=== PATIENT | female | born 1945 | race Hispanic/Latino ===

== ENCOUNTER 2021-06-26 12:08 | Emergency (ER) | payer OTHER ==
[~2021-06-26] VITALS: Ht 172.7 cm; Wt 81.6 kg
[~2021-06-26 12:08] MED LIST: ASPIRIN325 MG PO; CALTRATE 600600 MG PO; D3 PO; ESIDRIX25 MG PO; LEVOTHYROXINE100 MCG PO; MELOXICAM7.5 MG PO; METFORMIN HCL500 MG PO; NEXIUM40 MG PO; NIFEDIPINE ER60 M1 PO; POTASSIUM CHLO20 ME1 PO; ULTRAM 50MG50 MG PO; [UNRECOGNIZED DRUG - OTHER] PO
== END 2021-06-26 14:00 | disposition home or self-care (01) ==
LOC: ER 13:55
DX: U07.1 COVID-19 (principal); R06.02 Shortness of breath; E11.9 Type 2 diabetes mellitus without complications; Z79.84 Long term (current) use of oral hypoglycemic drugs
CPT/HCPCS: 99282

== ENCOUNTER 2024-08-31 20:30 | Emergency (ER) | payer OTHER ==
[~2024-08-31] VITALS: Ht 172.7 cm; Wt 81.6 kg
[2024-08-31 21:22] LABS: BASOPHILS # (AUTO) 0.1 (0.0-0.1); BASOPHILS % 0.4 % (0.0-1.0); EOSINOPHILS # (AUTO) 0.1 (0.0-0.4); EOSINOPHILS % 0.7 % (0.0-6.0); HEMATOCRIT 40.9 % (34.2-44.1); HEMOGLOBIN 14.5 g/dL (12.0-16.0); LYMPHOCYTES # (AUTO) 3.1 (1.0-3.2); LYMPHOCYTES % 27.1 % (18.0-39.1); MEAN CORPUSCULAR HEMOGLOBIN 29.9 pg (28-32); MEAN CORPUSCULAR HGB CONC 35.5 g/dL (31-35); MEAN CORPUSCULAR VOLUME 84.3 fL (81-99); MONOCYTES # (AUTO) 0.8 (0.2-0.8); MONOCYTES % 6.5 % (4.4-11.3); NEUTROPHILS # (AUTO) 7.5 (2.1-6.9); NEUTROPHILS % 65.1 % (38.7-80.0); PLATELET COUNT 343 x10e3/uL (140-360); RED BLOOD COUNT 4.85 x10e6/uL (3.6-5.1); RED CELL DISTRIBUTION WIDTH 12.6 % (11.7-14.4); WHITE BLOOD COUNT 11.56 x10e3/uL (4.8-10.8)
[2024-08-31 21:24] LABS: CLARITY,URINE CLEAR (CLEAR); COLOR,URINE STRAW (YELLOW); LEUKOCYTE ESTERASE ,URINE TRACE (NEGATIVE); PH,URINE 7 (5 - 7)
[2024-08-31 21:25] LABS: BILIRUBIN,URINE NEGATIVE (NEGATIVE); GLUCOSE, URINE NEGATIVE (NEGATIVE); KETONES,URINE NEGATIVE (NEGATIVE); NITRITE,URINE NEGATIVE (NEGATIVE); PROTEIN,URINE DIPSTICK NEGATIVE (NEGATIVE); URINE UROBILINOGEN 0.2 mg/dL (0.2 - 1)
[2024-08-31 21:31] LABS: BACTERIA,URINE FEW /HPF; EPITHELIAL CELLS,URINE MODERATE /LPF; RBC,URINE 0-5 /HPF (0-5); WBC,URINE (MAN) 0-5 /HPF (0-5)
[2024-08-31] MEDS: KETOROLAC TROMETHAMINE 30 MG/ML VIAL IV STA (21:40)
[2024-08-31 21:42] LABS: ALBUMIN/GLOBULIN RATIO 1.1 (0.8-2.0); ANION GAP 19.8 mmol/L (8-16); BILIRUBIN,TOTAL 1.4 mg/dL (0.2-1.2); CALCIUM 9.8 mg/dL (8.4-10.2); CREATININE, SERUM 0.81 mg/dL (0.57-1.11); TOTAL PROTEIN 7.7 g/dL (6.5-8.1)
[2024-08-31 21:44] LABS: POTASSIUM 2.8 mmol/L (3.5-5.1)
[2024-08-31] MEDS ORDERED: IOPAMIDOL 370 MG/ML 100 ML INFUS..BTL INJ ONE (21:53)
[2024-08-31] MEDS: POTASSIUM CHLORIDE 20 MEQ TAB CR PO STA (22:58)
[2024-08-31] MEDS: Morphine 4mg INJECTION 4 MG/ML INJ IV STA (23:17)
[2024-09-01 00:02] VITALS: PULSE 72; RESP 19; TEMP 98
[2024-09-01] MEDS: TRAMADOL HCL 50 MG TAB PO STA (00:21)
[2024-09-01 00:47] VITALS: BP 137/79; PULSE 60; RESP 17; TEMP 98; O2SAT 98
[2024-09-01] MEDS ORDERED: ULTRAM 50MG50 MG PO (00:51)
[2024-09-02] MEDS ORDERED: MEDROL4 M2 PO (14:47)
== END 2024-09-01 01:08 | disposition home or self-care (01) ==
LOC: ER 20:35
DX: M25.552 Pain in left hip (principal); M79.605 Pain in left leg; R10.30 Lower abdominal pain, unspecified; E11.65 Type 2 diabetes mellitus with hyperglycemia; K21.9 Gastro-esophageal reflux disease without esophagitis; G89.29 Other chronic pain
CPT/HCPCS: 36415; 70450; 74177; 80053; 81001; 83690; 85025; 99284; J1885; J2270; Q9967

== ENCOUNTER 2024-09-02 13:24 | Emergency (ER) | payer OTHER ==
[~2024-09-02] VITALS: Ht 157.5 cm; Wt 81.6 kg
[2024-09-02 13:50] VITALS: PULSE 90; RESP 18; TEMP 98.2
[2024-09-02] MEDS ORDERED: MEDROL4 M2 PO (14:47)
[2024-09-02] MEDS: DEXAMETHASONE SOD PHOS 10 MG/1 ML VIAL IM ONE (14:57)
[2024-09-02] MEDS: KETOROLAC TROMETHAMINE 60 MG/2 ML VIAL IM ONE (14:57)
[2024-09-02] MEDS: ONDANSETRON HCL INJ 2MG/ML 2ML 2 MG/ML VIAL IV STA (15:03)
[2024-09-02] MEDS: KETOROLAC TROMETHAMINE 30 MG/ML VIAL IV STA (15:06)
[2024-09-02] MEDS: DEXAMETHASONE SOD PHOS 10 MG/1 ML VIAL IV ONE (15:06)
[2024-09-02 15:43] VITALS: BP 138/84; PULSE 84; RESP 18; TEMP 98.2; O2SAT 99
== END 2024-09-02 15:40 | disposition home or self-care (01) ==
LOC: ER 13:37
DX: M54.50 Low back pain, unspecified (principal); G89.29 Other chronic pain; E11.40 Type 2 diabetes mellitus with diabetic neuropathy, unspecified; I10 Essential (primary) hypertension; K21.9 Gastro-esophageal reflux disease without esophagitis
CPT/HCPCS: 99283; J1100; J1885; J2405

== ENCOUNTER → 2025-01-13 | Day surgery (SDC) | payer OTHER ==
[2025-01-12 08:55] LABS: BASOPHILS # (AUTO) 0.1 (0.0-0.1); BASOPHILS % 0.7 % (0.0-1.0); EOSINOPHILS # (AUTO) 0.4 (0.0-0.4); EOSINOPHILS % 5.5 % (0.0-6.0); HEMATOCRIT 39.7 % (34.2-44.1); HEMOGLOBIN 13.4 g/dL (12.0-16.0); LYMPHOCYTES # (AUTO) 1.9 (1.0-3.2); LYMPHOCYTES % 28.5 % (18.0-39.1); MEAN CORPUSCULAR HEMOGLOBIN 29.8 pg (28-32); MEAN CORPUSCULAR HGB CONC 33.8 g/dL (31-35); MEAN CORPUSCULAR VOLUME 88.2 fL (81-99); MONOCYTES # (AUTO) 0.5 (0.2-0.8); MONOCYTES % 8.1 % (4.4-11.3); NEUTROPHILS # (AUTO) 3.8 (2.1-6.9); NEUTROPHILS % 57.1 % (38.7-80.0); PLATELET COUNT 257 x10e3/uL (140-360); RED CELL DISTRIBUTION WIDTH 13.4 % (11.7-14.4)
[~2025-01-13] MED LIST changes: +ACETAMINOPHEN 1000 MG/100 ML IV PRN; +ASPIRIN 325 MG TAB PO SCH; +ASPIRIN81 MG PO; +ATORVASTATIN CA20 MG PO; +CELEBREX200 MG PO; +CELECOXIB 100 MG CAP PO SCH; +CYMBALTA20 MG PO; +DIPHENHYDRAMINE HCL INJ 50 MG/ML VIAL IV PRN; +DOCUSATE SODIUM 100 MG CAP PO PRN; +GLIMEPIRIDE2 MG PO; +GLYCOPYRROLATE INJ 0.2 MG/ML VIAL ONE; +HYDROCODONE/APAP 5MG-325MG TAB PO PRN; +LIDOCAINE HCL 2% LOCAL INJ 5 ML SDV VIAL INJ ONE; +LYRICA100 MG PO; +LYRICA150 MG PO; +MEDROL4 M2 PO; +MIDAZOLAM HCL 2 MG/2 ML VIAL ONE; +OMEPRAZOLE40 MG PO; +ONDANSETRON HCL INJ 2MG/ML 2ML 2 MG/ML VIAL IV PRN; +ONDANSETRON HCL INJ 2MG/ML 2ML 2 MG/ML VIAL ONE; +PROPOFOL IV EMULSION 10 MG/ML 20 ML VIAL ONE; +ROCURONIUM BROMIDE 1 ML IV ONE; +ROPIVACAINE/EPI/CLONIDINE/KET 50 ML SYRINGE INJ ONE; +SEVOFLURANE INHAL SOLN 250 ML PEN BTL ONE; +SODIUM CHLORIDE 0.9% 1000ML 1,000 ML IV SCH; +SODIUM CHLORIDE 0.9% INJ 10 ML VIAL ONE; +TRANEXAMIC ACID 1,000 MG/10 ML ML ONE
[2025-01-13] MEDS: LACTATED RINGER'S 1,000 ML ONE (09:10)
[2025-01-13] MEDS: CELECOXIB 200 MG CAP ONE (09:11)
[2025-01-13] MEDS: CEFAZOLIN SODIUM 2 GM ONE (09:11)
[2025-01-13] MEDS: DEXAMETHASONE SOD PHOS 10 MG/1 ML VIAL ONE (09:12)
[2025-01-13 12:41] VITALS: TEMP 97.6
[2025-01-13] MEDS: FENTANYL CITRATE/PF 100MCG/2 ML INJ ONE (12:58)
[2025-01-13] MEDS: HYDROCODONE/APAP 7.5MG-325MG 1 EA TAB PO PRN (13:35)
[2025-01-13 15:30] VITALS: BP 113/68; PULSE 83; RESP 16; O2SAT 94
== END | disposition home health service (06) ==
LOC: OR 08:25
PROVIDERS: ATTEND Specialist
DX: M16.12 Unilateral primary osteoarthritis, left hip (principal); M85.652 Other cyst of bone, left thigh; E11.9 Type 2 diabetes mellitus without complications; I10 Essential (primary) hypertension; E78.00 Pure hypercholesterolemia, unspecified; E03.9 Hypothyroidism, unspecified; K21.9 Gastro-esophageal reflux disease without esophagitis; F41.9 Anxiety disorder, unspecified; Z88.8 Allergy status to other drugs, medicaments and biological substances; Z01.812 Encounter for preprocedural laboratory examination; Z79.84 Long term (current) use of oral hypoglycemic drugs; Z79.82 Long term (current) use of aspirin; Z79.899 Other long term (current) drug therapy
CPT/HCPCS: 27130; 36415 ×2; 72170; 82948; 85025; 86850; 86900; 97116; 97161; 97530; C1713 ×2; C1776 ×3; J1100; J2003; J2405; J2704; J3010; J7121; J2250

== ENCOUNTER → 2025-04-21 | Day surgery (SDC) | payer OTHER ==
[2025-04-20 13:41] LABS: BASOPHILS % 0.5 % (0.0-1.0); EOSINOPHILS # (AUTO) 0.2 (0.0-0.4); EOSINOPHILS % 2.5 % (0.0-6.0); HEMATOCRIT 41.3 % (34.2-44.1); HEMOGLOBIN 13.9 g/dL (12.0-16.0); LYMPHOCYTES # (AUTO) 2.1 (1.0-3.2); LYMPHOCYTES % 28.3 % (18.0-39.1); MEAN CORPUSCULAR HEMOGLOBIN 28.7 pg (28-32); MEAN CORPUSCULAR HGB CONC 33.7 g/dL (31-35); MEAN CORPUSCULAR VOLUME 85.2 fL (81-99); MONOCYTES # (AUTO) 0.5 (0.2-0.8); MONOCYTES % 7.4 % (4.4-11.3); NEUTROPHILS # (AUTO) 4.5 (2.1-6.9); NEUTROPHILS % 61.2 % (38.7-80.0); PLATELET COUNT 297 x10e3/uL (140-360); RED BLOOD COUNT 4.85 x10e6/uL (3.6-5.1); RED CELL DISTRIBUTION WIDTH 14.2 % (11.7-14.4); WHITE BLOOD COUNT 7.29 x10e3/uL (4.8-10.8)
[2025-04-20 13:48] LABS: ANION GAP 16.3 mmol/L (8-16); CREATININE, SERUM 0.84 mg/dL (0.57-1.11)
[2025-04-20 13:58] LABS: POTASSIUM 3.3 mmol/L (3.5-5.1)
[~2025-04-21] MED LIST changes: +ACETAMINOPHEN 1000 MG/100 ML 100 ML IV ONE; +EPHEDRINE SULFATE INJ 50 MG/ML VIAL ONE; +FENTANYL CITRATE/PF 100MCG/2 ML INJ ONE; +HYDROCODONE/APAP 5MG-325MG TAB ONE; +HYDROCODONE/APAP 7.5MG-325MG 1 EA TAB PO PRN; +KETOROLAC TROMETHAMINE 30 MG/ML VIAL ONE; +METOCLOPRAMIDE HCL 10 MG/2ML VIAL ONE; +ROCURONIUM BROMIDE 0 ML IV ONE; -ROCURONIUM BROMIDE 1 ML IV ONE; +SODIUM CHLORIDE 0.9% 100 ML ONE; -SODIUM CHLORIDE 0.9% INJ 10 ML VIAL ONE; -TRANEXAMIC ACID 1,000 MG/10 ML ML ONE
[2025-04-21] MEDS: CEFAZOLIN SODIUM 2 GM ONE (09:34)
[2025-04-21] MEDS: CELECOXIB 200 MG CAP ONE (09:34)
[2025-04-21] MEDS: DEXAMETHASONE SOD PHOS 10 MG/1 ML VIAL ONE (09:34)
[2025-04-21] MEDS: LACTATED RINGER'S 1,000 ML ONE (09:34)
[2025-04-21 13:23] VITALS: TEMP 97.1
[2025-04-21] MEDS: HYDROMORPHONE 1MG/1ML INJ ONE (13:34)
[2025-04-21] MEDS: FENTANYL CITRATE/PF 100MCG/2 ML INJ ONE (14:05)
[2025-04-21] MEDS: KETOROLAC TROMETHAMINE 30 MG/ML VIAL ONE (14:20)
[2025-04-21] MEDS: HYDROCODONE/APAP 5MG-325MG TAB PO ONE ×2 (14:53)
[2025-04-21 16:10] VITALS: BP 143/78; PULSE 87; RESP 16; O2SAT 99
== END | disposition home health service (06) ==
LOC: OR 08:42
PROVIDERS: ATTEND Specialist
DX: M16.11 Unilateral primary osteoarthritis, right hip (principal); Z96.642 Presence of left artificial hip joint; I10 Essential (primary) hypertension; E78.5 Hyperlipidemia, unspecified; E11.9 Type 2 diabetes mellitus without complications; E03.9 Hypothyroidism, unspecified; K21.9 Gastro-esophageal reflux disease without esophagitis; Z88.6 Allergy status to analgesic agent; Z01.810 Encounter for preprocedural cardiovascular examination; Z01.812 Encounter for preprocedural laboratory examination; Z01.818 Encounter for other preprocedural examination; Z79.82 Long term (current) use of aspirin; Z79.84 Long term (current) use of oral hypoglycemic drugs; Z79.899 Other long term (current) drug therapy; Z68.31 Body mass index [BMI] 31.0-31.9, adult
CPT/HCPCS: 27130; 36415 ×2; 71046; 72170; 80048; 82948; 85025; 86850; 86900; 93005; 97110; 97116; 97161; C1713 ×2; C1776 ×3; J0131; J1100; J1171; J1885; J2003; J2250; J2405; J2704; J2765; J3010; J7050; J7121

== ENCOUNTER 2025-06-22 07:59 | Outpatient (RCR) | payer OTHER ==
[~2025-06-22 07:59] MED LIST changes: -ACETAMINOPHEN 1000 MG/100 ML 100 ML IV ONE; -ACETAMINOPHEN 1000 MG/100 ML IV PRN; -ASPIRIN 325 MG TAB PO SCH; -CELECOXIB 100 MG CAP PO SCH; -DIPHENHYDRAMINE HCL INJ 50 MG/ML VIAL IV PRN; -DOCUSATE SODIUM 100 MG CAP PO PRN; -EPHEDRINE SULFATE INJ 50 MG/ML VIAL ONE; -FENTANYL CITRATE/PF 100MCG/2 ML INJ ONE; -GLYCOPYRROLATE INJ 0.2 MG/ML VIAL ONE; -HYDROCODONE/APAP 5MG-325MG TAB ONE; -HYDROCODONE/APAP 5MG-325MG TAB PO PRN; -HYDROCODONE/APAP 7.5MG-325MG 1 EA TAB PO PRN; -KETOROLAC TROMETHAMINE 30 MG/ML VIAL ONE; -LIDOCAINE HCL 2% LOCAL INJ 5 ML SDV VIAL INJ ONE; -METOCLOPRAMIDE HCL 10 MG/2ML VIAL ONE; -MIDAZOLAM HCL 2 MG/2 ML VIAL ONE; -ONDANSETRON HCL INJ 2MG/ML 2ML 2 MG/ML VIAL IV PRN; -ONDANSETRON HCL INJ 2MG/ML 2ML 2 MG/ML VIAL ONE; -PROPOFOL IV EMULSION 10 MG/ML 20 ML VIAL ONE; -ROCURONIUM BROMIDE 0 ML IV ONE; -ROPIVACAINE/EPI/CLONIDINE/KET 50 ML SYRINGE INJ ONE; -SEVOFLURANE INHAL SOLN 250 ML PEN BTL ONE; -SODIUM CHLORIDE 0.9% 100 ML ONE; -SODIUM CHLORIDE 0.9% 1000ML 1,000 ML IV SCH
== END 2025-07-19 ==
LOC: PT 07:59
PROVIDERS: ATTEND Specialist
DX: Z47.1 Aftercare following joint replacement surgery (principal); Z96.641 Presence of right artificial hip joint